=== PATIENT | female | born 1965 | race Caucasian/White ===

== ENCOUNTER → 2016-09-12 | Outpatient (CLI) | payer OTHER ==
--- NOTE | 2016-09-12 17:10 | XR ---
EXAMINATION TYPE: XR cervical spine comp DATE OF EXAM: 09/12/2016 COMPARISON: NONE HISTORY: Pain TECHNIQUE: 5 views FINDINGS: Cervical vertebra have normal alignment. There is narrowing of disc spaces from C3 to C6 wi th spurring. Atlantoaxial facet joint is normal. There are no cervical ribs. There is mild right-side d neural foraminal narrowing at C3-4 C4-5 C5-6. IMPRESSION: Spondylotic changes. No fracture.
== END | disposition home or self-care (01) ==
LOC: RADXRMAIN 16:40
PROVIDERS: ATTEND Family Medicine
DX: M47.812 Spondylosis without myelopathy or radiculopathy, cervical region (principal)
CPT/HCPCS: 72050

== ENCOUNTER → 2016-10-12 | Outpatient (CLI) | payer OTHER ==
--- NOTE | 2016-10-17 12:31 | MM ---
Reason for exam: follow-up at short interval from prior study. Last mammogram was performed 11 years and 2 months ago. History: Patient is postmenopausal. Physical Findings: Nurse did not find any significant physical abnormalities on exam. MG Diagnostic Mammo LT w CAD CC and MLO view(s) were taken of the left breast. Prior study comparison: March 22, 2016, mammogram, performed at [facility]. Subareolar focal asymmetry is stable from 03/11/15 on the MLO view and stable on the CC view from 03/22/16. The asymmetry does not seem to persist on the [employer] view. Additional short interval follow up recommended. These results were verbally communicated with the patient and result sheet given to the patient on 10/12/16. ASSESSMENT: Probably benign, BI-RAD 3 RECOMMENDATION: Follow-up diagnostic mammogram of both breasts in 5 months. Back on schedule.
== END ==
LOC: RADMAMWWP 10:01
PROVIDERS: ATTEND Family Medicine
DX: N60.42 Mammary duct ectasia of left breast (principal)

== ENCOUNTER 2017-03-12 11:52 | Emergency (ER) | payer OTHER ==
[2017-03-12 12:15] VITALS: BP 149/74; PULSE 65; RESP 20; TEMP 97.9
--- NOTE | 2017-03-12 12:45 | ED ---
General Adult HPI - General Chief complaint: Skin/Abscess/Foreign Body Stated complaint: HIVES Time Seen by Provider: 03/12/17 12:25 Source: patient, RN notes reviewed Mode of arrival: ambulatory Limitations: no limitations - History of Present Illness Initial comments: 51 yo female presents to the ER with cc of rash to bilateral arms that is itchy. She states she has become understanding and is dry and has been dry last few days. She states that sometimes." Also make her break out. She states she has has a incident home she just wanted make sure it wasn't anything serious. She states it has been itching. She denies any drainage or discharge from the area. She denies any fever chills cough cold or runny nose with this. Patient was concerned due to the rash so she thought that she should be seen. Patient denies any recent fever, chills, shortness of breath, chest pain, back pain, abdominal pain, nausea vomiting, numbness or tingling, dysuria or hematuria, constipation or diarrhea, headaches or visual changes, or any other current symptoms. - Related Data Home Medications Medication Instructions Recorded Confirmed Ferrous Sulfate, Dried [Slow 325 mg PO DAILY 03/02/14 03/23/14 Release Iron] Multivit with Calcium,Iron,Min 1 each PO DAILY 03/23/14 03/23/14 [Women's Daily Multivitamin] Previous Rx's Medication Instructions Recorded Hydrocortisone Cream 1 applic TOPICAL BID #1 tube 03/12/17 [Hydrocortisone 2.5% Cream] Allergies Allergy/AdvReac Type Severity Reaction Status Date / Time Penicillins Allergy Rash/Hives Verified 03/12/17 12:15 Review of Systems ROS Statement: Those systems with pertinent positive or pertinent negative responses have been documented in the HPI. ROS Other: All systems not noted in ROS Statement are negative. Past Medical History Past Medical History: Hypertension Additional Past Medical History / Comment(s): rectal pain,anemia, overactive bladder, family hx. of colon cancer History of Any Multi-Drug Resistant Organisms: None Reported Past Surgical History: Section, Cholecystectomy, Tubal Ligation Past Anesthesia/Blood Transfusion Reactions: No Reported Reaction Past Psychological History: Anxiety Smoking Status: Current every day smoker Past Alcohol Use History: Rare Past Drug Use History: None Reported General Exam Limitations: no limitations General appearance: alert, in no apparent distress Eye exam: Present: normal appearance, PERRL, EOMI. Absent: scleral icterus, conjunctival injection, periorbital swelling ENT exam: Present: normal exam, mucous membranes moist Neck exam: Present: normal inspection. Absent: tenderness, meningismus, lymphadenopathy Respiratory exam: Present: normal lung sounds bilaterally. Absent: respiratory distress, wheezes, rales, rhonchi, stridor Cardiovascular Exam: Present: regular rate, normal rhythm, normal heart sounds. Absent: systolic murmur, diastolic murmur, rubs, gallop, clicks Neurological exam: Present: alert, oriented X3 Psychiatric exam: Present: normal affect, normal mood Skin exam: Present: warm, dry, intact, rash (Small papular rash to bilateral wrists and bilateral tops of feet) Course Vital Signs 03/12/17 12:13 Temperature 97.9 F Pulse Rate 65 Respiratory 20 Rate Blood Pressure 149/74 O2 Sat by Pulse 99 Oximetry Medical Decision Making - Medical Decision Making 51-year-old female presents with appears to be dermatitis. At this time we will start patient on a cortisone cream. We discussed follow-up return parameters all questions. Patient stated that she understood and she is agreement this plan. All questions have been answered. She will be discharged home. Disposition Clinical Impression: Contact dermatitis Disposition: HOME SELF-CARE Condition: Stable Instructions: Dermatitis (ED) Additional Instructions: Please use medication as discussed. Please follow up with family doctor if symptoms have not improved over the next two days. Please return to the emergency room if your symptoms increase or worsen or for any other concerns. Prescriptions: Hydrocortisone Cream [Hydrocortisone 2.5% Cream] 1 applic TOPICAL BID #1 tube Referrals: Brandin Roblero DO [Primary Care Provider] - 1-2 days Time of Disposition: 12:44
== END 2017-03-12 12:59 | disposition home or self-care (01) ==
LOC: EC 11:52
DX: L25.9 Unspecified contact dermatitis, unspecified cause (principal); D64.9 Anemia, unspecified; F17.200 Nicotine dependence, unspecified, uncomplicated; Z79.899 Other long term (current) drug therapy; Z88.0 Allergy status to penicillin
CPT/HCPCS: 99282

== ENCOUNTER → 2017-05-22 | Outpatient (CLI) | payer OTHER ==
--- NOTE | 2017-05-22 10:46 | MM ---
Reason for exam: follow-up at short interval from prior study. Last mammogram was performed 7 months ago. History: Patient is postmenopausal. Physical Findings: Nurse did not find any significant physical abnormalities on exam. MG Diagnostic Mammo w CAD [facility] Bilateral CC and MLO view(s) were taken. Prior study comparison: October 12, 2016, left breast MG diagnostic mammo LT w CAD. March 22, 2016, mammogram, performed at [facility]. No significant new findings when compared with previous films. These results were verbally communicated with the patient and result sheet given to the patient on 05/22/17. ASSESSMENT: Benign, BI-RAD 2 RECOMMENDATION: Routine screening mammogram of both breasts in 1 year.
== END | disposition home or self-care (01) ==
LOC: RADMAMWWP 09:45
PROVIDERS: ATTEND Family Medicine
DX: R92.8 Other abnormal and inconclusive findings on diagnostic imaging of breast (principal)
CPT/HCPCS: 77066

== ENCOUNTER → 2017-09-05 | Outpatient (CLI) | payer OTHER ==
--- NOTE | 2017-09-05 12:27 | XR ---
EXAMINATION TYPE: XR abdomen complete w decub DATE OF EXAM: 09/05/2017 COMPARISON: NONE HISTORY: Abdominal distention TECHNIQUE: Supine, upright, and left side down lateral decubitus views of the abdomen are obtained. FINDINGS: Surgical clips present in the right upper quadrant. Lung bases are clear. There is no evidence for pneumoperitoneum. The bowel gas pattern is unremarkable as there is air throughout nondilated small and large bowel. No sizeable air fluid levels. No mass effects are seen. No unusual calcifications, multiple scattered calcifications felt likely vascular within the pelvis. Arthropathy present within the hips. IMPRESSION: Unremarkable study
== END | disposition home or self-care (01) ==
LOC: RADXRMAIN 11:07
PROVIDERS: ATTEND Family Medicine
DX: R14.0 Abdominal distension (gaseous) (principal)
CPT/HCPCS: 74021

== ENCOUNTER 2017-10-28 14:45 | Emergency (ER) | payer OTHER ==
[2017-10-28 14:50] VITALS: TEMP 98.2
[2017-10-28] MEDS ORDERED: SODIUM CHLORIDE 0.9% 1,000 ML IV STA (15:08)
--- NOTE | 2017-10-28 15:49 | ED ---
Abdominal Pain HPI - General Chief Complaint: Abdominal Pain Stated Complaint: Stomach pain Time Seen by Provider: 10/28/17 14:53 Source: patient, RN notes reviewed Mode of arrival: ambulatory Limitations: no limitations - History of Present Illness Initial Comments: 52-year-old female presents emergency Department with chief complaint of worsening abdominal pain. She states that she's had some pain after lifting heavy objects but states this is more consistent pain now. She states is in the periumbilical region. She states it's swollen, firm and painful with palpation. Patient denies any current nausea vomiting diarrhea constipation. She has seen her primary care physician for this who wanted to perform a CAT scan but she was concerned as the pain worsened today. Patient denies fever, chills, chest pain, shortness breath - Related Data Home Medications Medication Instructions Recorded Confirmed Ferrous Sulfate, Dried [Slow 325 mg PO DAILY 03/02/14 03/23/14 Release Iron] Multivit with Calcium,Iron,Min 1 each PO DAILY 03/23/14 03/23/14 [Women's Daily Multivitamin] Previous Rx's Medication Instructions Recorded Hydrocortisone Cream 1 applic TOPICAL BID #1 tube 03/12/17 [Hydrocortisone 2.5% Cream] Allergies Allergy/AdvReac Type Severity Reaction Status Date / Time Penicillins Allergy Rash/Hives Verified 10/28/17 14:50 Review of Systems ROS Statement: Those systems with pertinent positive or pertinent negative responses have been documented in the HPI. ROS Other: All systems not noted in ROS Statement are negative. Past Medical History Past Medical History: Hypertension, Osteoarthritis (OA) Additional Past Medical History / Comment(s): rectal pain,anemia, overactive bladder, family hx. of colon cancer History of Any Multi-Drug Resistant Organisms: None Reported Past Surgical History: Section, Cholecystectomy, Tubal Ligation Additional Past Surgical History / Comment(s): colonscopy Past Anesthesia/Blood Transfusion Reactions: No Reported Reaction Past Psychological History: Anxiety Smoking Status: Current every day smoker Past Alcohol Use History: Rare Past Drug Use History: None Reported General Exam Limitations: no limitations General appearance: alert, in no apparent distress Head exam: Present: atraumatic, normocephalic, normal inspection Respiratory exam: Present: normal lung sounds bilaterally. Absent: respiratory distress, wheezes, rales, rhonchi, stridor Cardiovascular Exam: Present: regular rate, normal rhythm, normal heart sounds. Absent: systolic murmur, diastolic murmur, rubs, gallop, clicks GI/Abdominal exam: Present: soft, distended, tenderness, normal bowel sounds, mass. Absent: guarding, rebound, rigid Back exam: Absent: CVA tenderness (R), CVA tenderness (L) Neurological exam: Present: alert, oriented X3, CN II-XII intact Skin exam: Present: warm, dry, intact, normal color. Absent: rash Course Vital Signs 10/28/17 10/28/17 14:47 17:24 Temperature 98.2 F Pulse Rate 92 87 Respiratory 16 18 Rate Blood Pressure 143/81 171/84 O2 Sat by Pulse 97 98 Oximetry Medical Decision Making - Medical Decision Making 52-year-old female presented for abdominal pain. Patient has a palpable mass noted she did have a CT which shows a large ovarian cyst arising from the right side along with a smaller one on the left. Dr. Karime maldonado did discuss the case with on-call PHARMAC[facility] Dr. Moran who recommends the patient follow-up outpatient in office patient also to have OVA-1 testing which was drawn here in emergency department. Strict return parameters were discussed. - Lab Data Result diagrams: 10/28/17 15:40 10/28/17 15:40 Lab Results 10/28/17 10/28/17 10/28/17 Range/Units 15:40 15:40 15:40 WBC 7.5 (3.8-10.6) k/uL RBC 4.49 (3.80-5.40) m/uL Hgb 13.8 (11.4-16.0) gm/dL Hct 40.6 (34.0-46.0) % MCV 90.5 (80.0-100.0) fL MCH 30.8 (25.0-35.0) pg MCHC 34.1 (31.0-37.0) g/dL RDW 12.6 (11.5-15.5) % Plt Count 365 (150-450) k/uL Neutrophils % 55 % Lymphocytes % 38 % Monocytes % 4 % Eosinophils % 1 % Basophils % 1 % Neutrophils # 4.1 (1.3-7.7) k/uL Lymphocytes # 2.9 (1.0-4.8) k/uL Monocytes # 0.3 (0-1.0) k/uL Eosinophils # 0.1 (0-0.7) k/uL Basophils # 0.1 (0-0.2) k/uL PT (9.0-12.0) sec INR (<1.2) APTT (22.0-30.0) sec Sodium 142 (137-145) mmol/L Potassium 3.5 (3.5-5.1) mmol/L Chloride 107 (98-107) mmol/L Carbon Dioxide 25 (22-30) mmol/L Anion Gap 10 mmol/L BUN 10 (7-17) mg/dL Creatinine 0.70 (0.52-1.04) mg/dL Est GFR (CKD-EPI)AfAm >90 (>60 ml/min/1.73 sqM) Est GFR (CKD-EPI)NonAf >90 (>60 ml/min/1.73 sqM) Glucose 112 H (74-99) mg/dL Plasma Lactic Acid Phu 0.7 (0.7-2.0) mmol/L Calcium 9.8 (8.4-10.2) mg/dL Total Bilirubin 0.4 (0.2-1.3) mg/dL AST 24 (14-36) U/L ALT 29 (9-52) U/L Alkaline Phosphatase 59 (38-126) U/L Total Protein 7.3 (6.3-8.2) g/dL Albumin 4.3 (3.5-5.0) g/dL Amylase 65 (30-110) U/L Lipase 117 (23-300) U/L Urine Color Urine Appearance (Clear) Urine pH (5.0-8.0) Ur Specific [place] (1.001-1.035) Urine Protein (Negative) Urine Glucose (UA) (Negative) Urine Ketones (Negative) Urine Blood (Negative) Urine Nitrite (Negative) Urine Bilirubin (Negative) Urine Urobilinogen (<2.0) mg/dL Ur Leukocyte Esterase (Negative) 10/28/17 10/28/17 Range/Units 15:40 15:40 WBC (3.8-10.6) k/uL RBC (3.80-5.40) m/uL Hgb (11.4-16.0) gm/dL Hct (34.0-46.0) % MCV (80.0-100.0) fL MCH (25.0-35.0) pg MCHC (31.0-37.0) g/dL RDW (11.5-15.5) % Plt Count (150-450) k/uL Neutrophils % % Lymphocytes % % Monocytes % % Eosinophils % % Basophils % % Neutrophils # (1.3-7.7) k/uL Lymphocytes # (1.0-4.8) k/uL Monocytes # (0-1.0) k/uL Eosinophils # (0-0.7) k/uL Basophils # (0-0.2) k/uL PT 10.4 (9.0-12.0) sec INR 1.1 (<1.2) APTT 24.4 (22.0-30.0) sec Sodium (137-145) mmol/L Potassium (3.5-5.1) mmol/L Chloride (98-107) mmol/L Carbon Dioxide (22-30) mmol/L Anion Gap mmol/L BUN (7-17) mg/dL Creatinine (0.52-1.04) mg/dL Est GFR (CKD-EPI)AfAm (>60 ml/min/1.73 sqM) Est GFR (CKD-EPI)NonAf (>60 ml/min/1.73 sqM) Glucose (74-99) mg/dL Plasma Lactic Acid Phu (0.7-2.0) mmol/L Calcium (8.4-10.2) mg/dL Total Bilirubin (0.2-1.3) mg/dL AST (14-36) U/L ALT (9-52) U/L Alkaline Phosphatase (38-126) U/L Total Protein (6.3-8.2) g/dL Albumin (3.5-5.0) g/dL Amylase (30-110) U/L Lipase (23-300) U/L Urine Color Yellow Urine Appearance Clear (Clear) Urine pH 5.5 (5.0-8.0) Ur Specific [place] 1.012 (1.001-1.035) Urine Protein Negative (Negative) Urine Glucose (UA) Negative (Negative) Urine Ketones Negative (Negative) Urine Blood Negative (Negative) Urine Nitrite Negative (Negative) Urine Bilirubin Negative (Negative) Urine Urobilinogen <2.0 (<2.0) mg/dL Ur Leukocyte Esterase Negative (Negative) Disposition Clinical Impression: Ovarian mass, left, Abdominal pain Disposition: HOME SELF-CARE Condition: Stable Instructions: Abdominal Pain (ED) Additional Instructions: Please return to the Emergency Department if symptoms worsen or any other concerns. Is patient prescribed a controlled substance at d/c from ED?: No Referrals: Brandin Roblero DO [Primary Care Provider] - 1-2 days Praneeth Moran MD [STAFF PHYSICIAN] - 1-2 days Time of Disposition: 17:32
[2017-10-28 15:51] LABS: Appearance,Urine Clear (Clear); Basophils # (A) 0.1 k/uL (0-0.2); Basophils % (A) 1 %; Bilirubin,Urine Negative (Negative); Blood,Urine Negative (Negative); Color,Urine Yellow; Eosinophils # (A) 0.1 k/uL (0-0.7); Eosinophils % (A) 1 %; Glucose,Urine (UA) Negative (Negative); HCT 40.6 % (34.0-46.0); HGB 13.8 gm/dL (11.4-16.0); Ketones,Urine Negative (Negative); Leukocyte Esterase,Urine Negative (Negative); Lymphocytes # (A) 2.9 k/uL (1.0-4.8); Lymphocytes % (A) 38 %; MCH 30.8 pg (25.0-35.0); MCHC 34.1 g/dL (31.0-37.0); MCV 90.5 fL (80.0-100.0); Mean Platelet Volume 6.6; Monocytes # (A) 0.3 k/uL (0-1.0); Monocytes % (A) 4 %; Neutrophils # (A) 4.1 k/uL (1.3-7.7); Neutrophils % (A) 55 %; Nitrite,Urine Negative (Negative); PH, Urine 5.5 (5.0-8.0); Platelet Count 365 k/uL (150-450); Protein,Urine Negative (Negative); RBC 4.49 m/uL (3.80-5.40); RDW 12.6 % (11.5-15.5); Specific Gravity,Urine 1.012 (1.001-1.035); Urobilinogen,Urine <2.0 mg/dL (<2.0); WBC 7.5 k/uL (3.8-10.6)
[2017-10-28 16:01] LABS: ALT 29 U/L (9-52); AST 24 U/L (14-36); Albumin 4.3 g/dL (3.5-5.0); Alkaline Phosphatase 59 U/L (38-126); Amylase 65 U/L (30-110); Anion Gap 10 mmol/L; Blood Urea Nitrogen 10 mg/dL (7-17); Calcium 9.8 mg/dL (8.4-10.2); Carbon Dioxide 25 mmol/L (22-30); Chloride 107 mmol/L (98-107); Glucose 112 mg/dL (74-99); Lipase 117 U/L (23-300); Potassium 3.5 mmol/L (3.5-5.1); Sodium 142 mmol/L (137-145); Total Bilirubin 0.4 mg/dL (0.2-1.3); Total Protein 7.3 g/dL (6.3-8.2)
[2017-10-28 16:07] LABS: INR 1.1 (<1.2); Partial Thromboplastin Time 24.4 sec (22.0-30.0); Prothrombin Time 10.4 sec (9.0-12.0)
--- NOTE | 2017-10-28 16:54 | CT ---
EXAMINATION TYPE: CT abdomen pelvis w con DATE OF EXAM: 10/28/2017 COMPARISON: None HISTORY: Umbilical pain after lifting. CT DLP: 745.6 mGycm Automated exposure control for dose reduction was used. TECHNIQUE: Helical acquisition of images was performed from the lung bases through the pelvis. CONTRAST: Performed without Oral Contrast and with IV Contrast, patient injected with 100ml mL of Isovue 300. FINDINGS: Lung bases are clear. There is no pleural effusion. Heart size is normal. Liver spleen pancreas appear normal. Bile ducts are not dilated. There are clips from cholecystectomy . There is no adrenal mass. Kidneys show satisfactory contrast opacification. There is a 17 x 11 cm c ystic mass in the pelvis extending above the umbilicus. This is probably arising from the left ovary. There is a second lateral cyst in the upper pelvis that measures 5.7 x 4.3 cm probably arising also from left ovary. Uterus is anteverted. The right ovary measures 4.2 cm. There is no free fluid in the pelvis. Appendix appears normal. There is no intestinal wall thickening. There are no dilated loops. The lumbar spine is intact. I see no bony destructive process. IMPRESSION: LARGE THIN-WALLED CYSTIC PELVIC MASS CONSISTENT WITH A VERY LARGE LEFT OVARIAN CYST. FOLLOW-UP IS REC OMMENDED. TUMOR IS SUSPECTED. ADJACENT SMALLER LEFT SIDE PELVIC CYST. NORMAL APPENDIX. NO RENAL OBSTRUCTION.
[2017-10-28 17:26] VITALS: PULSE 87; RESP 18
[2017-10-28 18:08] VITALS: BP 174/83
== END 2017-10-28 18:07 | disposition home or self-care (01) ==
LOC: EC 14:45
DX: R19.09 Other intra-abdominal and pelvic swelling, mass and lump (principal); N83.201 Unspecified ovarian cyst, right side; N83.202 Unspecified ovarian cyst, left side; F17.200 Nicotine dependence, unspecified, uncomplicated; Z90.49 Acquired absence of other specified parts of digestive tract; Z98.51 Tubal ligation status; Z98.890 Other specified postprocedural states; Z88.0 Allergy status to penicillin
CPT/HCPCS: 36415; 80053; 82150; 83605; 83690; 85025; 85610; 85730; 81003; 74177; 99284; Q9967

== ENCOUNTER 2018-04-18 12:05 | Emergency (ER) | payer OTHER ==
[2018-04-18 12:16] VITALS: RESP 18
--- NOTE | 2018-04-18 13:22 | ED ---
General Adult HPI - General Chief complaint: Upper Respiratory Infection Stated complaint: Congestion Time Seen by Provider: 04/18/18 12:27 Source: patient, RN notes reviewed Mode of arrival: ambulatory Limitations: no limitations - History of Present Illness Initial comments: 52-year-old female presents to the emergency department for a chief complaint of itching ears. Patient states her ears have felt itchy and she has been congested for the past few weeks. She denies any pain in the sinuses. She denies any fevers or chills. She states she thinks she has wax in her ears. She states she went to primary care to have these flushed but her primary care did not do this. She states she is here today to have her ears flushed. She denies cough. She denies body aches. Patient has no other complaints at this time including shortness of breath, chest pain, abdominal pain, nausea or vomiting, headache, or visual changes. - Related Data Home Medications Medication Instructions Recorded Confirmed Hydrochlorothiazide [Hydrodiuril] 50 mg PO DAILY 04/18/18 04/18/18 Losartan [Cozaar] 50 mg PO DAILY 04/18/18 04/18/18 Previous Rx's Medication Instructions Recorded Fluticasone Nasal [place] [Flonase 1 spray EA NOSTRIL DAILY #1 bottle 04/18/18 Nasal [place]] Loratadine [Claritin] 10 mg PO DAILY #20 tab 04/18/18 Ofloxacin 0.3% Ophth Soln [Ocuflox 10 drops BOTH EARS DAILY 5 Days ml 04/18/18 Ophth Soln] Allergies Allergy/AdvReac Type Severity Reaction Status Date / Time Penicillins Allergy Rash/Hives Verified 04/18/18 13:45 Review of Systems ROS Statement: Those systems with pertinent positive or pertinent negative responses have been documented in the HPI. ROS Other: All systems not noted in ROS Statement are negative. Past Medical History Past Medical History: Hypertension, Osteoarthritis (OA) Additional Past Medical History / Comment(s): rectal pain,anemia, overactive bladder, family hx. of colon cancer History of Any Multi-Drug Resistant Organisms: None Reported Past Surgical History: Section, Cholecystectomy, Tubal Ligation Additional Past Surgical History / Comment(s): colonscopy Past Anesthesia/Blood Transfusion Reactions: No Reported Reaction Past Psychological History: Anxiety Smoking Status: Current every day smoker Past Alcohol Use History: Rare Past Drug Use History: None Reported General Exam Limitations: no limitations General appearance: alert, in no apparent distress Head exam: Present: atraumatic, normocephalic, normal inspection Eye exam: Present: normal appearance, PERRL, EOMI. Absent: scleral icterus, conjunctival injection, periorbital swelling ENT exam: Present: normal exam, normal oropharynx, mucous membranes moist, TM's normal bilaterally (cerumen impaction noted bilat), normal external ear exam Neck exam: Present: normal inspection, full ROM. Absent: tenderness, meningismus, lymphadenopathy Respiratory exam: Present: normal lung sounds bilaterally. Absent: respiratory distress, wheezes, rales, rhonchi, stridor Cardiovascular Exam: Present: regular rate, normal rhythm, normal heart sounds. Absent: systolic murmur, diastolic murmur, rubs, gallop, clicks Neurological exam: Present: alert, oriented X3, CN II-XII intact Psychiatric exam: Present: normal affect, normal mood Course Vital Signs 04/18/18 12:14 Temperature 97.9 F Pulse Rate 66 Respiratory 18 Rate Blood Pressure 121/78 O2 Sat by Pulse 97 Oximetry Medical Decision Making - Medical Decision Making 52-year-old female presents for itchy ears and congestion 2 weeks. Patient denies any pain in the sinuses, no tenderness. No fevers or chills. Patient not currently taking any medications for ALLERGIES. On exam of the ears patient does have cerumen impaction bilaterally. Patient states with her primary care provider who would not irrigate these. She states she does want these irrigated today. I did voice the patient that we do not usually irrigate years through the emergency department however unwilling to if she prefers. Patient does want ears irrigated. [place] [facility] did successfully irrigate ears and cerumen was removed. However patient complaining of pain. On exam patient does have minimal blood noted from eardrums bilaterally. I do not see any perforations. This is likely from irritation which was laced with patient. However I did give patient antibiotic drops and told her to keep water out of her ears with, pulse of shower and. She'll follow up with ENT. She will take Flonase nasal spray as well as Claritin for the symptoms. I do not suspect a bacterial sinus congestion and patient does not want oral antibiotics regardless. She will return here if she has any worsening symptoms. Disposition Clinical Impression: Cerumen impaction Disposition: HOME SELF-CARE Condition: Good Instructions (If sedation given, give patient instructions): Cerumen Impaction (ED) Additional Instructions: Please follow up with ENT in 1-2 days. Try to keep water out of ears. Please use medications as directed. Please return to the emergency department if you have any worsening symptoms. Prescriptions: Fluticasone Nasal [place] [Flonase Nasal [place]] 1 spray EA NOSTRIL DAILY #1 bottle Loratadine [Claritin] 10 mg PO DAILY #20 tab Ofloxacin 0.3% Ophth Soln [Ocuflox Ophth Soln] 10 drops BOTH EARS DAILY 5 Days ml Is patient prescribed a controlled substance at d/c from ED?: No Referrals: Brandin Roblero DO [Primary Care Provider] - 1-2 days Eric Mckeon MD [STAFF PHYSICIAN] - 1-2 days Time of Disposition: 14:26
[2018-04-18 14:47] VITALS: BP 133/85; PULSE 60; TEMP 97.7
== END 2018-04-18 14:44 | disposition home or self-care (01) ==
LOC: EC 12:05
DX: H61.23 Impacted cerumen, bilateral (principal); I10 Essential (primary) hypertension; F17.200 Nicotine dependence, unspecified, uncomplicated; Z85.038 Personal history of other malignant neoplasm of large intestine; Z79.899 Other long term (current) drug therapy; Z88.0 Allergy status to penicillin
CPT/HCPCS: 69209; 99283

== ENCOUNTER → 2018-05-28 | Outpatient (CLI) | payer OTHER ==
--- NOTE | 2018-05-28 13:17 | MM ---
Reason for exam: screening (asymptomatic). Last mammogram was performed 1 year ago. History: Patient is postmenopausal. Physical Findings: A clinical breast exam by your physician is recommended on an annual basis and results should be correlated with mammographic findings. MG Screening Mammo w CAD Bilateral CC and MLO view(s) were taken. Prior study comparison: May 22, 2017, bilateral MG diagnostic mammo w CAD [facility]. October 12, 2016, left breast MG diagnostic mammo LT w CAD. There are scattered fibroglandular densities. There is chronic nodularity in the right breast. No significant changes when compared with prior studies. ASSESSMENT: Benign, BI-RAD 2 RECOMMENDATION: Routine screening mammogram of both breasts in 1 year.
== END | disposition home or self-care (01) ==
LOC: RADMAMWWP 10:04
PROVIDERS: ATTEND Family Medicine
DX: Z12.31 Encounter for screening mammogram for malignant neoplasm of breast (principal)
CPT/HCPCS: 77067

== ENCOUNTER 2019-09-21 10:23 | Emergency (ER) | payer OTHER ==
[2019-09-21 10:55] VITALS: RESP 18
[2019-09-21] MEDS ORDERED: methylPREDNISolone SOD SUCCI 125 MG/2 ML VIAL IM ONE (11:56)
--- NOTE | 2019-09-21 12:10 | ED ---
Eye Problem HPI - General Chief complaint: Eye Problems Stated complaint: rt eye swelling, finger pain Time Seen by Provider: 09/21/19 11:39 Source: patient Mode of arrival: ambulatory Limitations: no limitations - History of Present Illness Initial comments: Patient is a 54-year-old female presenting to the emergency Department with complaints of a rash and irritation around both of her eyes for the past week. Patient states she does she is ALLERGIC to fish and did eat some about a week ago before her symptoms began. Patient states she went to a different ER and received a steroid injection however it did not clear up her issue. She denies any foreign bodies in her eyes, blurry vision, eye pain. She describes the discomfort as itchiness around the outside of both of her eyes as well as redness. She denies history of eczema. She states she has been under a lot of stress over the past 2 weeks and also moved into a new house with a lot more ALLERGIES. She has not tried any medications for her her symptoms. She denies any fever or chills. She has no further complaints at this time. Upon arrival to the ER her vital signs are stable. - Related Data Home Medications Medication Instructions Recorded Confirmed Losartan [Cozaar] 50 mg PO DAILY 04/18/18 04/18/18 hydroCHLOROthiazide [Hydrodiuril] 50 mg PO DAILY 04/18/18 04/18/18 Previous Rx's Medication Instructions Recorded Fluticasone Nasal [place] [Flonase 1 spray EA NOSTRIL DAILY #1 bottle 04/18/18 Nasal [place]] Loratadine [Claritin] 10 mg PO DAILY #20 tab 04/18/18 Ofloxacin 0.3% Ophth Soln [Ocuflox 10 drops BOTH EARS DAILY 5 Days ml 04/18/18 Ophth Soln] Hydrocortisone Cream 1 applic TOPICAL BID 5 Days #1 tube 09/21/19 [Hydrocortisone 2.5% Cream] diphenhydrAMINE [Benadryl] 25 mg PO HS PRN #10 capsule 09/21/19 Allergies Allergy/AdvReac Type Severity Reaction Status Date / Time Penicillins Allergy Rash/Hives Verified 09/21/19 10:55 Review of Systems ROS Statement: Those systems with pertinent positive or pertinent negative responses have been documented in the HPI. ROS Other: All systems not noted in ROS Statement are negative. Past Medical History Past Medical History: Hypertension, Osteoarthritis (OA) Additional Past Medical History / Comment(s): rectal pain,anemia, overactive bladder, family hx. of colon cancer History of Any Multi-Drug Resistant Organisms: None Reported Past Surgical History: Section, Cholecystectomy, Tubal Ligation Additional Past Surgical History / Comment(s): colonscopy Past Anesthesia/Blood Transfusion Reactions: No Reported Reaction Past Psychological History: Anxiety Smoking Status: Current every day smoker Past Alcohol Use History: Rare Past Drug Use History: None Reported General Exam - General Exam Comments Initial Comments: GENERAL: Patient is well-developed and well-nourished. Patient is nontoxic and in no acute distress. HEAD: Atraumatic, normocephalic. EYES: Pupils equal round and reactive to light, extraocular movements intact, sclera anicteric, conjunctiva are normal. Patient has erythema, dryness, scaly rash around the outside of both eyes, consistent with eczema/dermatitis. Visual acuity is normal. ENT: TMs normal, nares patent, oropharynx clear without exudates. Moist mucous membranes. NECK: Normal range of motion, supple without lymphadenopathy or JVD. LUNGS: Unlabored respirations. Breath sounds clear to auscultation bilaterally and equal. No wheezes rales or rhonchi. HEART: Regular rate and rhythm without murmurs, rubs or gallops. ABDOMEN: Soft, nontender, normoactive bowel sounds. No guarding, no rebound. No masses appreciated. : Deferred MUSCULOSKELETAL: Normal extremities with adequate strength and normal range of motion, no pitting or edema. No clubbing or cyanosis. NEUROLOGICAL: Normal speech, normal gait. Symmetrical smile. PSYCH: Normal mood, normal affect. SKIN: Warm, Dry, normal turgor, no rashes or lesions noted. Limitations: no limitations Course Vital Signs 09/21/19 10:52 Temperature 99.2 F Pulse Rate 68 Respiratory 18 Rate Blood Pressure 152/88 O2 Sat by Pulse 98 Oximetry Medical Decision Making - Medical Decision Making Patient is a 54-year-old female presenting with a erythematous, scaly, dry rash around the outside of both of her eyes times one week. She denies any eye pain or blurry vision. This rash is consistent with an eczema/dermatitis. Patient will be given a steroid injection in the ER, we discussed taking Benadryl at nighttime for symptoms as well as doing a small amount of topical steroid cream to the outside of her eyes for 5 days. Patient is in agreement with this plan of care. I recommended following up with her PCP. She is stable for discharge at this time. Case discussed with Dr. Yu. Disposition Clinical Impression: Eczematous dermatitis, upper and lower eyelids, bilateral Disposition: HOME SELF-CARE Condition: Stable Instructions (If sedation given, give patient instructions): Eczema (ED) Additional Instructions: Please return to the Emergency Department if symptoms worsen or any other concerns. He was cold compresses on the eyes for itchiness. Recommended taking Benadryl at nighttime. Apply topical steroid as discussed, in small amounts around the outside of her eye, no longer than one week. Follow-up with PCP. Prescriptions: diphenhydrAMINE [Benadryl] 25 mg PO HS PRN #10 capsule PRN Reason: Itching Hydrocortisone Cream [Hydrocortisone 2.5% Cream] 1 applic TOPICAL BID 5 Days #1 tube Is patient prescribed a controlled substance at d/c from ED?: No Referrals: Brandin Roblero, [Primary Care Provider] - 1-2 days
[2019-09-21 12:56] VITALS: BP 135/88; PULSE 58; TEMP 98
== END 2019-09-21 12:50 | disposition home or self-care (01) ==
LOC: EC 10:23
DX: H01.9 Unspecified inflammation of eyelid (principal); I10 Essential (primary) hypertension; F17.200 Nicotine dependence, unspecified, uncomplicated; Z79.899 Other long term (current) drug therapy; Z88.0 Allergy status to penicillin; Z91.013 Allergy to seafood
CPT/HCPCS: 99283; 96372; J2930

== ENCOUNTER → 2019-11-13 | Outpatient (CLI) | payer OTHER ==
--- NOTE | 2019-11-17 08:52 | MM ---
Reason for exam: screening (asymptomatic). Last mammogram was performed 1 year and 5 months ago. History: Patient is postmenopausal. Physical Findings: A clinical breast exam by your physician is recommended on an annual basis and results should be correlated with mammographic findings. MG 3D Screening Mammo W/Cad Bilateral CC and MLO view(s) were taken. Prior study comparison: May 28, 2018, bilateral MG screening mammo w CAD. May 22, 2017, bilateral MG diagnostic mammo w CAD [facility]. There are scattered fibroglandular densities. No significant changes when compared with prior studies. ASSESSMENT: Negative, BI-RAD 1 RECOMMENDATION: Routine screening mammogram of both breasts in 1 year.
== END | disposition home or self-care (01) ==
LOC: RADMAMWWP 12:21
PROVIDERS: ATTEND Family Medicine
DX: Z12.31 Encounter for screening mammogram for malignant neoplasm of breast (principal)
CPT/HCPCS: 77063; 77067

== ENCOUNTER → 2020-10-07 | Outpatient (CLI) | payer OTHER ==
--- NOTE | 2020-10-07 16:52 | US ---
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 GLAND SIZE: Right Lobe: 6.3 x 3.6 x 2.7 cm Overall Parenchyma: heterogenous Left Lobe: 6.0 x 2.6 x 2.5 cm Overall Parenchyma: heterogeneous Isthmus Thickness: 1.0 cm Markedly heterogeneous and lobular gland with some generalized hyperemia. No well-defined discrete nodules are seen. Bilateral neck scanned, no evidence of lymphadenopathy. IMPRESSION: Goiter with enlarged, very heterogeneous, and lobulated gland. No well-defined, discrete nodule.
== END | disposition home or self-care (01) ==
LOC: RADUSWWP 12:57
PROVIDERS: ATTEND Nurse Practitioner Gerontology
DX: E04.1 Nontoxic single thyroid nodule (principal)
CPT/HCPCS: 76536

== ENCOUNTER → 2021-02-11 | Outpatient (CLI) | payer OTHER ==
[2021-02-11 15:00] LABS: Basophils # (A) 0.05 X 10*3/uL (0.00-0.10); Basophils % (A) 0.7 %; Eosinophils # (A) 0.09 X 10*3/uL (0.04-0.35); Eosinophils % (A) 1.2 %; HCT 42.4 % (37.2-46.3); HGB 13.7 g/dL (12.0-15.0); Lymphocytes # (A) 3.11 X 10*3/uL (0.90-5.00); Lymphocytes % (A) 42.4 %; MCH 30.9 pg (27.0-32.0); MCHC 32.3 g/dL (32.0-37.0); MCV 95.7 fL (80.0-97.0); Mean Platelet Volume 9.4 fL (9.5-12.2); Monocytes % (A) 5.4 %; Neutrophils # (A) 3.67 X 10*3/uL (1.80-7.70); Platelet Count 338 X 10*3/uL (140-440); RBC 4.43 X 10*6/uL (4.10-5.20); RDW 12.8 % (11.5-14.5); WBC 7.34 X 10*3/uL (4.50-10.00)
[2021-02-11 17:47] LABS: ALT 31 U/L (8-44); AST 24 U/L (13-35); African American GFR (CKD) 102.6 (60.0-200.0); Albumin 4.4 g/dL (3.8-4.9); Albumin/Globulin Ratio 1.95 (1.60-3.17); Alkaline Phosphatase 76 U/L (41-126); BUN/Creat Ratio 12.77 Ratio (12.00-20.00); Blood Urea Nitrogen 9.6 mg/dL (9.0-27.0); Calcium 9.6 mg/dL (8.7-10.3); Carbon Dioxide 28.1 mmol/L (20.0-27.5); Chloride 101 mmol/L (96-109); Chol/HDL Ratio 4.66 Ratio; Globulin 2.3 g/dL (1.6-3.3); Glucose 83 mg/dL (70-110); LDL Cholesterol,Calculated 170.1 mg/dL (0.0-131.0); Non-African American GFR(CKD) 88.5 (60.0-200.0); Potassium 3.9 mmol/L (3.5-5.5); Sodium 142 mmol/L (135-145); Total Protein 6.7 g/dL (6.2-8.2); VLDL Calculation 19.98 mg/dL (5.00-40.00)
== END | disposition home or self-care (01) ==
LOC: LABWHC1 08:53
PROVIDERS: ATTEND Nurse Practitioner Gerontology
DX: I10 Essential (primary) hypertension (principal); E04.1 Nontoxic single thyroid nodule; D51.9 Vitamin B12 deficiency anemia, unspecified; L64.9 Androgenic alopecia, unspecified; L56.4 Polymorphous light eruption; L93.0 Discoid lupus erythematosus; L70.0 Acne vulgaris; L29.8 Other pruritus; L68.0 Hirsutism; L20.89 Other atopic dermatitis; L40.0 Psoriasis vulgaris; L95.9 Vasculitis limited to the skin, unspecified; Z79.899 Other long term (current) drug therapy; R53.82 Chronic fatigue, unspecified
CPT/HCPCS: 36415; 80053; 80061; 82607; 84439; 84443; 85025

== ENCOUNTER → 2021-04-15 | Outpatient (CLI) | payer OTHER ==
--- NOTE | 2021-04-19 08:51 | MM ---
Reason for exam: screening (asymptomatic). Last mammogram was performed 1 year and 5 months ago. History: Patient is postmenopausal. Physical Findings: A clinical breast exam by your physician is recommended on an annual basis and results should be correlated with mammographic findings. MG 3D Screening Mammo W/Cad Bilateral CC and MLO view(s) were taken. Prior study comparison: November 13, 2019, bilateral MG 3d screening mammo w/cad. May 28, 2018, bilateral MG screening mammo w CAD. There are scattered fibroglandular densities. No significant changes when compared with prior studies. ASSESSMENT: Benign, BI-RAD 2 RECOMMENDATION: Routine screening mammogram of both breasts in 1 year.
== END | disposition home or self-care (01) ==
LOC: RADMAMWWP 09:53
PROVIDERS: ATTEND Internal Medicine Geriatric Medicine
DX: Z12.31 Encounter for screening mammogram for malignant neoplasm of breast (principal)
CPT/HCPCS: 77063; 77067

== ENCOUNTER 2022-02-28 08:09 | Day surgery (SDC) | payer OTHER ==
[2022-01-06 15:23] VITALS: BMI 30.6
[~2022-02-28 08:09] MED LIST: LACTATED RINGERS 1,000 ML IV SCH
[2022-02-28 08:54] VITALS: RESP 16
[2022-02-28] MEDS ORDERED: LIDOCAINE 2% INJ 20 MG/ML (2 ML VIAL) ONE (09:22)
[2022-02-28] MEDS ORDERED: PROPOFOL 10 MG/ML 20 ML VIAL IV ONE (09:22)
--- NOTE | 2022-02-28 09:36 | P.PCN ---
Date of Procedure: 02/28/22 Procedure(s) Performed: BRIEF HISTORY: Patient is a 56-year-old pleasant white female scheduled for an elective colonoscopy as a part of screening for colon cancer. She has a family history of colon cancer diagnosed in her sister at age 57. PROCEDURE PERFORMED: Colonoscopy. PREOPERATIVE DIAGNOSIS: Screening for colon cancer/family history of colon cancer. IV sedation per Anesthesia. PROCEDURE: After informed consent was obtained, the patient, was brought into the endoscopy unit. IV sedation was administered by Anesthesia under continuous monitoring. Digital rectal examination was normal. Initially the Olympus CF-160 flexible video colonoscope was then inserted in the rectum, gradually advanced into the cecum without any difficulty. Careful examination was performed as the scope was gradually being withdrawn. Ileocecal valve and the appendiceal orifice were visualized and appeared normal. Prep was excellent. Mucosa of the cecum, ascending colon, transverse colon, descending colon normal. The distal sigmoid colon there was a 5 limited polyp removed by snare polypectomy. Rest of, si gmoid colon, and rectum appeared normal. Retroflexion was performed in the rectum and no lesions were seen. The patient tolerated the procedure well. IMPRESSION: 5 mm distal sigmoid colon polyp status post polypectomy Rest of the colon appeared normal RECOMMENDATIONS: Findings of this examination were discussed with the patient as well as a family. She was advised to follow with the biopsy results. Recommend a repeat colonoscopy in 5 years because of family history of colon cancer
[2022-02-28 10:08] VITALS: BP 127/76; PULSE 85
== END 2022-02-28 10:30 | disposition home or self-care (01) ==
LOC: ORWHC2ENDO 08:09
PROVIDERS: ATTEND Internal Medicine Gastroenterology
DX: Z12.11 Encounter for screening for malignant neoplasm of colon (principal); Z80.0 Family history of malignant neoplasm of digestive organs; K63.5 Polyp of colon
CPT/HCPCS: 88305; 45385; J2704; J2001

== ENCOUNTER → 2022-11-30 | Outpatient (CLI) | payer OTHER ==
--- NOTE | 2022-11-30 12:53 | CTL ---
EXAMINATION TYPE: CT Low Dose Lung DATE OF EXAM ORDERED: 11/30/2022 COMPARISON: HISTORY: . Low Dose CT Lung Screening CT DLP: [address] CTDI: 2.4 mGy IV CONTRAST USED: None. SCREENING VISIT: First visit COMPARISON: None. TECHNIQUE: Low dose computed tomography scan was performed through the chest at 1 millimeter thick se ctions and reconstructed images in the coronal plane at [address] DIAGNOSTIC QUALITY: Satisfactory FINDINGS: LUNG NODULES: 9 mm nodular density medial segment right middle lobe adjacent to the right heart borde r likely reflects an area of atelectasis or parenchymal scar however 3 month follow-up CT is recommen ded. No additional nodules present. LUNGS: COPD: Severity: None Fibrosis: Severity:None Lymph nodes: None Other findings: Prominence of the thyroid gland noted. RIGHT PLEURAL SPACE: Effusion: None Calcification: None Thickening: None Pneumothorax: None LEFT PLEURAL SPACE: Effusion: None Calcification: None Thickening: None Pneumothorax: None HEART: Heart Size: Mildly enlarged Coronary calcification: Mild Pericardial effusion: None OTHER FINDINGS: Upper abdomen: No significant abnormality Bony thorax: Degenerative changes Supraclavicular region: No significant abnormalityOther: No significant abnormalityI IMPRESSION: 1. 9 mm nodular density medial segment right middle lobe adjacent to the right heart border likely reflects an area of atelectasis or parenchymal scar however 3 month follow-up CT is recommended. FOLLOW UP CT CHEST RECOMMENDATION: 3 month follow-up low-dose CT recommended. CT LUNG RAD: LUNG RAD CATEGORY 4A suspicious
== END | disposition home or self-care (01) ==
LOC: RADCTMAIN 12:08
PROVIDERS: ATTEND Family Medicine
DX: Z12.2 Encounter for screening for malignant neoplasm of respiratory organs (principal); F17.210 Nicotine dependence, cigarettes, uncomplicated; J98.4 Other disorders of lung; R91.1 Solitary pulmonary nodule
CPT/HCPCS: 71271

== ENCOUNTER → 2023-04-25 | Outpatient (CLI) | payer OTHER ==
--- NOTE | 2023-04-26 19:39 | MM ---
Reason for Exam: Screening (asymptomatic). Last screening mammogram was performed 12 month(s) ago. Patient History: Menarche at age 13. First Full-Term at age 17. Left ovary removed at age 52. Right ovary removed at age 52. Hysterectomy at age 52. Postmenopausal. Risk Values: Malka 5 year model risk: 0.9%. NCI Lifetime model risk: 5.1%. Prior Study Comparison: 11/13/2019 Bilateral Screening Mammogram, [facility]. 04/15/2021 Bilateral Screening Mammogram, [facility]. 04/18/2022 Bilateral MG 3D screening mammo w/cad, [facility]. Tissue Density: There are scattered fibroglandular densities. Findings: Analyzed By CAD. There is no suspicious group of microcalcifications or new suspicious mass in either breast. Overall Assessment: Negative, BI-RAD 1 Management: Screening Mammogram of both breasts in 1 year. . Patient should continue monthly self-breast exams. A clinical breast exam by your physician is recommended on an annual basis. This exam should not preclude additional follow-up of suspicious palpable abnormalities. Note on Malka scores and lifetime risk: 1. A Malka score greater than 3% is considered moderate risk. If this is the case, consider specialist referral to assess eligibility for a risk reducing agent. 2. If overall lifetime risk for the development of breast cancer is 20% or higher, the patient may qualify for future screening with alternating mammogram and breast MRI. Electronically signed and approved by: Giulia Gordon M.D. Radiologist
== END | disposition home or self-care (01) ==
LOC: RADMAMWWP 10:42
PROVIDERS: ATTEND Family Medicine
DX: Z12.31 Encounter for screening mammogram for malignant neoplasm of breast (principal); Z78.0 Asymptomatic menopausal state
CPT/HCPCS: 77063; 77067

== ENCOUNTER 2023-06-06 18:43 | Emergency (ER) | payer OTHER ==
[2023-06-06 19:08] VITALS: BP 151/84; PULSE 71; RESP 18; TEMP 97.7
--- NOTE | 2023-06-06 19:58 | ED ---
General Adult HPI - General Chief complaint: Extremity Injury, Lower Stated complaint: rt leg pain ear pain Time Seen by Provider: 06/06/23 19:11 Source: patient Mode of arrival: ambulatory Limitations: no limitations - History of Present Illness Initial comments: 57-year-old female with a past medical history significant for hypercholesterolemia presents to the ED with a chief complaint of right leg pain. Patient reports for the past few months has had pain of her right lateral thigh. States that she stood for started noticing this after starting her statin a few months ago. States that she saw her PCP for this who recommended her to take it every other day instead of daily. Despite doing this for the past month or so she really reports that she still having this pain prompting presentation to the ED for further evaluation. Also notes that her bilateral ears have been itchy and has been causing her some discomfort for the past few months as well. She has not seen her primary care provider for this. Denies fever. Unexpected weight loss. No chest pain or shortness of breath. No other complaints at this time. - Related Data Home Medications Medication Instructions Recorded Confirmed Losartan [Cozaar] 50 mg PO DAILY 04/18/18 02/28/22 hydroCHLOROthiazide [Hydrodiuril] 50 mg PO DAILY 04/18/18 02/28/22 Atorvastatin [Lipitor] 20 mg PO HS 01/06/22 02/28/22 Cetirizine HCl [Zyrtec] 10 mg PO DAILY 01/06/22 02/28/22 Cyanocobalamin [Vitamin B-12 1,000 mcg SQ QMONTHLY 01/06/22 02/28/22 Injection] Famotidine [Pepcid] 20 mg PO DAILY 01/06/22 02/28/22 Previous Rx's Medication Instructions Recorded Acetaminophen Tab [Tylenol] 650 mg PO Q6H #30 tab 06/06/23 Ibuprofen [Motrin] 600 mg PO Q8HR PRN #30 tab 06/06/23 Allergies Allergy/AdvReac Type Severity Reaction Status Date / Time latex Allergy Itching Verified 06/06/23 18:49 Penicillins Allergy Rash/Hives Verified 06/06/23 18:49 Review of Systems ROS Statement: Those systems with pertinent positive or pertinent negative responses have been documented in the HPI. ROS Other: All systems not noted in ROS Statement are negative. Past Medical History Past Medical History: GERD/Reflux, Hyperlipidemia, Hypertension, Osteoarthritis (OA) Additional Past Medical History / Comment(s): ,anemia, overactive bladder, family hx. of colon cancer History of Any Multi-Drug Resistant Organisms: None Reported Past Surgical History: Section, Cholecystectomy, Hysterectomy, Tubal Ligation Additional Past Surgical History / Comment(s): colonscopy Past Anesthesia/Blood Transfusion Reactions: No Reported Reaction Past Psychological History: Anxiety Smoking Status: Current every day smoker, Former smoker Past Alcohol Use History: Rare Past Drug Use History: None Reported - Past Family History Sister(s) Family Medical History: Cancer General Exam Limitations: no limitations General appearance: alert, in no apparent distress, obese ENT exam: Present: TM's normal bilaterally Neck exam: Present: normal inspection Respiratory exam: Present: normal lung sounds bilaterally Cardiovascular Exam: Present: regular rate Extremities exam: Present: other (Full active range of motion of the right lower extremity. Strength and sensation intact. DP/PT pulses palpable.) Neurological exam: Present: alert, oriented X3 Skin exam: Present: warm, dry Course Vital Signs 06/06/23 18:44 Temperature 97.7 F Pulse Rate 71 Respiratory 18 Rate Blood Pressure 151/84 O2 Sat by Pulse 99 Oximetry Medical Decision Making - Medical Decision Making Was pt. sent in by a medical professional or institution (, PA, PROFESSOR OF FOREST PLANNING, urgent care, hospital, or long term...) When possible be specific @ -No Did you speak to anyone other than the patient for history (EMS, parent, family, police, friend...)? What history was obtained from this source @ -No Did you review nursing and triage notes (agree or disagree)? Why? @ -I reviewed and agree with nursing and triage notes Were old charts reviewed (outside hosp., previous admission, EMS record, old EKG, old radiological studies, urgent care reports/EKG's, long term records)? Report findings @ -No old charts were reviewed Differential Diagnosis (chest pain, altered mental status, abdominal pain women, abdominal pain men, vaginal bleeding, weakness, fever, dyspnea, syncope, headache, dizziness, GI bleed, back pain, seizure, CVA, palpatations, mental health, musculoskeletal)? @ -Differential Musculoskeletal Muscular strain, contusion, ligament sprain, fracture, arthritis, septic arthritis, bursitis, cellulitis, muscle spasm, nerve compression, DVT, arterial occlusion, herpes zoster, electrolyte abnormality, tumor.... This is not meant to be in all inclusive list EKG interpreted by me (3pts min.). @ -None X-rays interpreted by me (1pt min.). @ -X-ray of the right femur interpreted me which revealed no acute finding CT interpreted by me (1pt min.). @ -None done U/S interpreted by me (1pt. min.). @ -None done What testing was considered but not performed or refused? (CT, X-rays, U/S, labs)? Why? @ -None What meds were considered but not given or refused? Why? @ -None Did you discuss the management of the patient with other professionals (professionals i.e. , PA, PROFESSOR OF [employer]EST PLANNING, lab, RT, psych nurse, high school social studies tutor, fashion styling intern, teacher, chief technical officer, test case developer)? Give summary @ -No Was smoking cessation discussed for >3mins.? @ -No Was critical care preformed (if so, how long)? @ -No Were there social determinants of health that impacted care today? How? (Homelessness, low income, unemployed, alcoholism, drug addiction, transportation, low edu. Level, literacy, decrease access to med. care, assisted, rehab)? @ -No Was there de-escalation of care discussed even if they declined (Discuss DNR or withdrawal of care, Hospice)? DNR status @ -No What co-morbidities impacted this encounter? (DM, HTN, Smoking, COPD, CAD, Cancer, CVA, ARF, Chemo, Hep., AIDS, mental health diagnosis, sleep apnea, morbid obesity)? @ -None Was patient admitted / discharged? Hospital course, mention meds given and route, prescriptions, significant lab abnormalities, going to OR and other pertinent info. @ -Discharge 57-year-old female presenting to the ED with complaints of right leg pain. Reports that this has been ongoing for few months and relates that this may have started after taking her statin. Despite taking this every other day she reports that this is still ongoing which is why she is presenting to the ED for further evaluation. Also notes for the past few months her ears have been itchy and causing her discomfort. No hearing loss. On examination, right lower extremity shows full active range of motion. Strength and sensation equal and intact in bilateral lower extremities. DP/PT pulses intact bilaterally. Examination of the ears shows TMs intact bilaterally with no erythema or bulging. Examination of the external ear canal and the outer ear show no warmth, erythema, edema or tenderness to palpation. No mastoid process tenderness to palpation bilaterally. X-ray of the right femur revealed no evidence of acute finding. Symptoms likely musculoskeletal in nature. Advise follow-up with her PCP. In regards to the ear itching, no worrisome findings on exam. Advise follow-up with ENT. Provided ENT referral. Discharged home in stable condition. Discussed return precautions with patient who verbalized agreement. Undiagnosed new problem with uncertain prognosis? @ -No Drug Therapy requiring intensive monitoring for toxicity (Heparin, Nitro, Insulin, Cardizem)? @ -No Were any procedures done? @ -No Diagnosis/symptom? @ -Right thigh pain, bilateral ear itching/discomfort Acute, or Chronic, or Acute on Chronic? @ -Acute Uncomplicated (without systemic symptoms) or Complicated (systemic symptoms)? @ -Uncomplicated Side effects of treatment? @ -No Exacerbation, Progression, or Severe Exacerbation? @ -No Poses a threat to life or bodily function? How? (Chest pain, [place], [place], pneumonia, PE, COPD, DKA, ARF, appy, cholecystitis, CVA, Diverticulitis, Homicidal, Suicidal, threat to staff... and all critical care pts) @ -No Disposition Clinical Impression: Right thigh pain, Ear pain Disposition: HOME SELF-CARE Condition: Good Instructions (If sedation given, give patient instructions): Earache (ED), Musculoskeletal Pain (ED) Additional Instructions: Please return to the Emergency Department if symptoms worsen or any other concerns. Please follow-up with your PCP and/or ENT. Prescriptions: Ibuprofen [Motrin] 600 mg PO Q8HR PRN #30 tab PRN Reason: Pain Acetaminophen Tab [Tylenol] 650 mg PO Q6H #30 tab Is patient prescribed a controlled substance at d/c from ED?: No Referrals: Faith Abdi MD [Primary Care Provider] - 1-2 days Eric Mckeon MD [STAFF PHYSICIAN] - 1-2 days Time of Disposition: 20:34
--- NOTE | 2023-06-06 20:20 | XR ---
EXAMINATION TYPE: XR femur RT DATE OF EXAM: 06/06/2023 8:15 PM CLINICAL INDICATION:Female, 57 years old with history of r lateral thigh pain; [facility] COMPARISON: None TECHNIQUE: The Right femur was examined in Multiple projections. FINDINGS: No evidence of acute osseous pathology, joint dislocation, or soft tissue swelling. Modera te osteoarthictic changes are identified with osteophytes and joint space narrowing. IMPRESSION: 1. No acute osseous pathology. 2. Moderate degenerative changes of the right hip.
== END 2023-06-06 20:44 | disposition home or self-care (01) ==
LOC: EC 18:43
DX: M79.651 Pain in right thigh (principal); H92.03 Otalgia, bilateral; F17.200 Nicotine dependence, unspecified, uncomplicated; Z88.0 Allergy status to penicillin; Z91.040 Latex allergy status
CPT/HCPCS: 99283

== ENCOUNTER → 2023-09-26 | Outpatient (CLI) | payer OTHER ==
--- NOTE | 2023-09-26 11:11 | CTL ---
EXAMINATION TYPE: CT Low Dose Lung DATE OF EXAM ORDERED: 09/26/2023 HISTORY: 20 pack-year history, quit smoking 9 months ago. Lung cancer screening CT DLP: 90.[address] CTDI: 2.4 mGy Automated exposure control for dose reduction was used. SCREENING VISIT: Follow-up COMPARISON: CT Low Dose Lung 11/30/2022 TECHNIQUE: Low dose computed tomography scan was performed through the chest at 1 mm thick sections a nd reconstructed images in multiple planes at 1 mm and [address] DIAGNOSTIC QUALITY: Satisfactory FINDINGS: Nodules: Stable left lower lobe 5 mm solid pulmonary nodule (series 15, image 218). No new or enlarging pulmon leonie nodules. LUNGS: COPD: Severity: Mild centrilobular emphysematous changes. Fibrosis: Severity: None Lymph nodes: None Other findings: Right middle lobe linear scarring redemonstrated. RIGHT PLEURAL SPACE: Effusion: None Calcification: None Thickening: None Pneumothorax: None LEFT PLEURAL SPACE: Effusion: None Calcification: None Thickening: None Pneumothorax: None HEART: Heart Size: Normal Coronary Calcification: Mild Pericardial Effusion: None OTHER FINDINGS: Upper abdomen: Gallbladder is surgically absent. Bony thorax: None Supraclavicular region: Thyroid appears enlarged. Other: None IMPRESSION: 1. Stable left lower lobe 5 mm solid pulmonary nodule. No new or enlarging pulmonary nodules. Similar right midlung scarring. 2. Mild COPD changes. CT LUNG RAD AND CT CHEST RECOMMENDATION: Lung-Rad 2 Benign Appearance or Behavior: Continue annual sc reening with LDCT in 12 months. S Modifier (other clinically significant findings): None
== END | disposition home or self-care (01) ==
LOC: RADCTMAIN 09:25
PROVIDERS: ATTEND Family Medicine
DX: R91.1 Solitary pulmonary nodule (principal); J44.9 Chronic obstructive pulmonary disease, unspecified
CPT/HCPCS: 71271

== ENCOUNTER → 2024-05-28 | Outpatient (CLI) | payer OTHER ==
--- NOTE | 2024-05-28 12:03 | MM ---
Reason for Exam: Screening (asymptomatic). Last mammogram was performed 1 year(s) and 2 month(s) ago. Patient History: Menarche at age 13. First Full-Term at age 17. Left ovary removed at age 52. Right ovary removed at age 52. Hysterectomy at age 52. Postmenopausal. Risk Values: Malka 5 year model risk: 0.9%. NCI Lifetime model risk: 5.0%. Prior Study Comparison: 04/15/2021 Bilateral Screening Mammogram, [facility]. 04/18/2022 Bilateral MG 3D screening mammo w/cad, [facility]. 04/25/2023 Bilateral MG 3D screening mammo w/cad, [facility]. Tissue Density: There are scattered areas of fibroglandular density. Findings: Analyzed By CAD. There is no suspicious group of microcalcifications or new suspicious mass in either breast. Overall Assessment: Negative, BI-RAD 1 Management: Screening Mammogram of both breasts in 1 year. . Patient should continue monthly self-breast exams. A clinical breast exam by your physician is recommended on an annual basis. This exam should not preclude additional follow-up of suspicious palpable abnormalities. Note on Malka scores and lifetime risk: 1. A Malka score greater than 3% is considered moderate risk. If this is the case, consider specialist referral to assess eligibility for a risk reducing agent. 2. If overall lifetime risk for the development of breast cancer is 20% or higher, the patient may qualify for future screening with alternating mammogram and breast MRI. [facility], , 05/28/2024 12:00 PM. Electronically signed and approved by: Fredo Mendez M.D. Radiologis
== END | disposition home or self-care (01) ==
LOC: RADMAMWWP 10:23
PROVIDERS: ATTEND Family Medicine
DX: Z12.31 Encounter for screening mammogram for malignant neoplasm of breast (principal); R92.323 Mammographic fibroglandular density, bilateral breasts; Z78.0 Asymptomatic menopausal state
CPT/HCPCS: 77063; 77067

== ENCOUNTER → 2024-08-19 | Outpatient (CLI) | payer OTHER ==
--- NOTE | 2024-08-19 16:02 | XR ---
EXAMINATION TYPE: XR lumbosacral spine 5 views, XR Hip Complete 2 views RT, XR femur 2 views RT DATE OF EXAM: 08/19/2024 3:55 PM COMPARISON: None CLINICAL INDICATION: Female, 59 years old with history of M25.551 PAIN IN RIGHT HIP; PHH, pain FINDINGS: Lumbar spine: 5 lumbar type vertebral bodies. Hypertrophic facet arthropathy mid to lower lumbar spine. Vertebral b bharat heights are preserved and alignment is maintained. Mild multilevel degenerative disc disease. Right hip: There is mild axial joint space narrowing with subchondral sclerosis and prominent marginal spurring. No acute fracture, subluxation, or dislocation. Right femur: Tricompartmental degenerative spurring greatest in the patellofemoral compartment. No acute fracture is seen. IMPRESSION: Lumbar spine: 1. Hypertrophic facet arthropathy mid to lower lumbar spine. 2. Mild multilevel degenerative disc disease. The adrenal vertebral compression collapse or malalignment. Right hip and right femur: 3. [id number] right hip OA. 4. Tricompartmental degenerative spurring at the knee, greatest in the patellofemoral compartment. 5. No acute osseous abnormality seen. [facility], Workstation: [facility], 08/19/2024 4:00 PM
== END | disposition home or self-care (01) ==
LOC: RADXRMAIN 14:35
PROVIDERS: ATTEND Family Medicine
DX: M47.816 Spondylosis without myelopathy or radiculopathy, lumbar region (principal); M51.369 Other intervertebral disc degeneration, lumbar region without mention of lumbar back pain or lower extremity pain; M16.11 Unilateral primary osteoarthritis, right hip; M25.761 Osteophyte, right knee
CPT/HCPCS: 72110; 73502